=== PATIENT | female | born 1985 | race Caucasian/White ===

== ENCOUNTER 2017-11-02 10:03 | Emergency (ER) | payer OTHER ==
[2017-11-02] MEDS ORDERED: RABIES IMMUNE GLOBULIN 1500 INTERNATIONAL UNITS/10 ML VIAL (90375) IM (11:15)
[2017-11-02] MEDS: RABIES VACCINE HUMAN 2.5 INTERNATIONAL UNITS/ML VIAL (90675) IM (11:29)
[2017-11-02] MEDS: ADACEL/BOOSTRIX VACCINE (DIPHTH/PERTUSS/ACELL/TETANUS)0.5ML SYR (90715) IM (11:29)
[2017-11-02] MEDS: RABIES IMMUNE GLOBULIN 1500 INTERNATIONAL UNITS/10 ML VIAL (90375) IM (11:49)
[2017-11-02] MEDS: RABIES IMMUNE GLOBULIN 300 INTERNATIONAL UNITS/2 ML VIAL (90375) IM (11:49)
== END 2017-11-02 12:20 | disposition home or self-care (01) ==
LOC: M ED 10:03
DX: Z20.3 Contact with and (suspected) exposure to rabies (principal); K51.90 Ulcerative colitis, unspecified, without complications; Z88.0 Allergy status to penicillin; Z88.2 Allergy status to sulfonamides; Z79.899 Other long term (current) drug therapy
CPT/HCPCS: 90715

== ENCOUNTER 2017-11-05 10:26 | Emergency (ER) | payer OTHER ==
[2017-11-05] MEDS: RABIES VACCINE HUMAN 2.5 INTERNATIONAL UNITS/ML VIAL (90675) IM (11:40)
== END 2017-11-05 11:57 | disposition home or self-care (01) ==
LOC: M ED 10:26
DX: Z20.3 Contact with and (suspected) exposure to rabies (principal); Z23 Encounter for immunization; Z88.0 Allergy status to penicillin; Z88.1 Allergy status to other antibiotic agents; Z88.2 Allergy status to sulfonamides
CPT/HCPCS: 90675

== ENCOUNTER 2017-11-09 11:03 | Emergency (ER) | payer OTHER ==
[2017-11-09] MEDS: RABIES VACCINE HUMAN 2.5 INTERNATIONAL UNITS/ML VIAL (90675) IM (11:44)
== END 2017-11-09 12:06 | disposition home or self-care (01) ==
LOC: M ED 11:03
DX: Z20.3 Contact with and (suspected) exposure to rabies (principal); Z23 Encounter for immunization; Z79.899 Other long term (current) drug therapy; Z88.0 Allergy status to penicillin; Z88.1 Allergy status to other antibiotic agents; Z88.2 Allergy status to sulfonamides
CPT/HCPCS: 90675

== ENCOUNTER 2017-11-16 10:54 | Emergency (ER) | payer OTHER ==
[2017-11-16] MEDS: RABIES VACCINE HUMAN 2.5 INTERNATIONAL UNITS/ML VIAL (90675) IM (11:27)
== END 2017-11-16 11:42 | disposition home or self-care (01) ==
LOC: M ED 10:54
DX: Z20.3 Contact with and (suspected) exposure to rabies (principal); Z23 Encounter for immunization
CPT/HCPCS: 90675

== ENCOUNTER → 2019-10-24 | Emergency (ER) | payer BC, OTHER ==
[~2019-10-24] MED LIST: ASAC800T3 PO
== END | disposition home or self-care (01) ==
LOC: M ED 21:40
DX: S51.812A Laceration without foreign body of left forearm, initial encounter (principal); W54.1XXA Struck by dog, initial encounter; Y93.K1 Activity, walking an animal; Y92.9 Unspecified place or not applicable; Y99.9 Unspecified external cause status; Z88.0 Allergy status to penicillin; Z88.2 Allergy status to sulfonamides; Z79.899 Other long term (current) drug therapy